=== PATIENT | male | born 1940 | race African-American/Black ===

== ENCOUNTER 2017-02-19 07:32 | Emergency (ER) | payer OTHER ==
[~2017-02-19] VITALS: Ht 172.7 cm; Wt 70.0 kg
[2017-02-19] MEDS ORDERED: ACETAMINOPHEN 325MG TABLET PO ONE (10:45)
[2017-02-19 11:20] VITALS: BP 157/82
== END 2017-02-19 11:34 | disposition home or self-care (01) ==
LOC: ER 08:12
DX: M54.2 Cervicalgia (principal); I10 Essential (primary) hypertension; V49.49XA Driver injured in collision with other motor vehicles in traffic accident, initial encounter; Y93.89 Activity, other specified; Y92.89 Other specified places as the place of occurrence of the external cause; Z96.60 Presence of unspecified orthopedic joint implant
CPT/HCPCS: 99283